=== PATIENT | male | born 1960 | race Caucasian/White ===

== ENCOUNTER 2017-08-01 05:22 | Inpatient (IN) | payer BC ==
[2017-07-26 15:26] LABS: BASOPHILS # (AUTO) 0.1 X10'3 (0-0.2); BASOPHILS % (AUTO) 0.7 % (0-1); EOSINOPHILS # (AUTO) 0.5 X10'3 (0-0.9); LYMPHOCYTES # (AUTO) 2.8 X10'3 (1.1-4.8); LYMPHOCYTES % (AUTO) 24.7 % (21-51); MEAN CORPUSCULAR HEMOGLOBIN 29.2 PG (27.0-31.0); MEAN CORPUSCULAR HGB CONC 33.5 % (33.0-36.5); MEAN CORPUSCULAR VOLUME 87.1 FL (78-98); MEAN PLATELET VOLUME 7.1 FL (7.4-10.4); MONOCYTES # (AUTO) 1.1 X10'3 (0-0.9); NEUTROPHILS # (AUTO) 6.9 X10'3 (1.8-7.7); NEUTROPHILS % (AUTO) 60.6 % (42-75); PRE OP HEMATOCRIT 39.4 % (42.0-52.0); PRE OP HEMOGLOBIN 13.2 g/dL (14.0-17.9); PRE OP PLATELET COUNT 474 X10'3 (140-440); RED BLOOD COUNT 4.53 X10'6 (4.70-6.10); RED CELL DISTRIBUTION WIDTH 14.7 % (11.5-14.5)
[2017-07-26 15:36] LABS: PRE OP INR 0.9 INR; PRE OP PROTIME 9.6 SECONDS (9.0-12.0)
[2017-07-26 15:40] LABS: ALBUMIN 3.6 G/DL (3.4-5.0); ALBUMIN/GLOBULIN RATIO 0.9 (1.1-1.5); ALKALINE PHOSPHATASE 153 IU/L (46-116); BLOOD UREA NITROGEN 27 MG/DL (7-18); CALCIUM 9.2 MG/DL (8.5-10.1); CHLORIDE 103 MMOL/L (99-107); PRE OP ALT 28 U/L (30-65); PRE OP ANION GAP 9 (8-16); PRE OP AST 20 U/L (10-37); PRE OP BILIRUB, TOTAL 0.2 MG/DL (0.0-1.0); PRE OP GLUCOSE 97 MG/DL (70-104); PRE OP POTASSIUM 4.4 MMOL/L (3.4-5.1); PRE OP SODIUM 140 MMOL/L (135-145); TOTAL CARBON DIOXIDE 28.4 MMOL/L (24-32); TOTAL PROTEIN 7.4 G/DL (6.4-8.2); eGFR 76 ML/MIN
[~2017-08-01] VITALS: Ht 167.6 cm; Wt 72.6 kg
[2017-08-01] VITALS (18 sets, daily range): BP systolic 95–138; BP diastolic 58–84
[~2017-08-01 05:22] MED LIST: NO HOME MEDS; ringers solution, lacted 1,000 ML IV SCH
[2017-08-01] MEDS ORDERED: vancomycin inj 1,500 MG in normal saline 300ml IV soln IV ONE (05:30)
[2017-08-01] MEDS ORDERED: tranexamic acid inj. 1,000 MG in normal saline 100ml IV soln 90 ML IV ONE (05:30)
[2017-08-01] MEDS ORDERED: famotidine 20mg tablet PO ONE (05:30)
[2017-08-01] MEDS ORDERED: oxyCODONE SR 10mg (sust. release) tab PO ONE (05:30)
[2017-08-01] MEDS ORDERED: clindamycin-Cleocin 900mg/D5W 50 ML IV ONE (05:30)
[2017-08-01] MEDS ORDERED: LIDOcaine 1% (10mg/ml) 2ml vial ONE (05:45)
[2017-08-01] MEDS ORDERED: sevoflurane 250ml liquid IH ONE (07:11)
[2017-08-01] MEDS ORDERED: phenylephrine 10mg/ml inj IV ONE (07:11)
[2017-08-01] MEDS ORDERED: tetracaine 1% (10mg/ml) pres. free inj. ONE (07:12)
[2017-08-01] MEDS ORDERED: cloNIDine hcl/PF 100mcg/ml inj ONE (07:12)
[2017-08-01] MEDS ORDERED: fentaNYL/PF 50MCG/1 ML 2ML syringe ONE ×2 (07:15→09:21)
[2017-08-01] MEDS ORDERED: MIDAZolam 5mg/5ml vial ONE (07:15)
[2017-08-01] MEDS ORDERED: morphine sulfate /PF 0.5 MG/ML 10mL ampul ONE (07:16)
[2017-08-01] MEDS ORDERED: LIDOcaine 2% (20mg/ml) 5ml vial ONE (07:31)
[2017-08-01] MEDS ORDERED: propofol inj 20 ML IV ONE ×3 (07:31→10:50)
[2017-08-01] MEDS ORDERED: ringers solution, lacted 1,000 ML IV SCH (08:23)
[2017-08-01] MEDS ORDERED: naloxone 2mg/2ml inj 1.4 MG in normal saline 500ml IV soln 500 ML IV PRN (08:23)
[2017-08-01] MEDS ORDERED: morphine 4 MG/ML inj SYRINge IV PRN ×2 (08:25)
[2017-08-01] MEDS ORDERED: diphenhydrAMINE 50 mg/ml inj IV PRN (08:25)
[2017-08-01] MEDS ORDERED: ondansetron/PF 4mg/2ml inj IV PRN ×3 (08:25→11:30)
[2017-08-01] MEDS ORDERED: proCHLORperazine 10 MG/2 ml inj IV PRN (08:25)
[2017-08-01] MEDS ORDERED: meperidine/PF 25mg/ml syringe IV PRN ×3 (08:25)
[2017-08-01] MEDS ORDERED: dexamethasone sod phosphate 4mg/ml inj. ONE (08:54)
[2017-08-01] MEDS ORDERED: diphenhydrAMINE 50 mg/ml inj ONE (08:54)
[2017-08-01] MEDS ORDERED: epiNEPHrine 1 mg/ml inj ONE (08:54)
[2017-08-01] MEDS ORDERED: ROPIVAcaine 0.5% (5mg/ml) 30ml vial ONE (08:54)
[2017-08-01] MEDS ORDERED: magnesium hydroxide 30ml (MOM) UD suspension PO PRN (11:30)
[2017-08-01] MEDS ORDERED: acetaminophen 325mg tablet PO PRN (11:30)
[2017-08-01] MEDS ORDERED: diphenhydrAMINE 25mg capsule PO PRN ×2 (11:30)
[2017-08-01] MEDS ORDERED: bisacodyl 10mg suppository rectal RC PRN (11:30)
[2017-08-01] MEDS ORDERED: HYDROmorphone 1 mg/ml syringe IV PRN (11:40)
[2017-08-01] MEDS ORDERED: tranexamic acid inj. 1,000 MG in normal saline 100ml IV soln 100 ML IV ONE (14:30)
[2017-08-01] MEDS: clindamycin 600mg/D5W 50ml 50 ML IV SCH ×2 (15:00→20:00)
[2017-08-01] MEDS: oxyCODONE IR 5mg (immed. release) tablet PO PRN ×3 (15:00→23:18)
[2017-08-01] MEDS ORDERED: aspirin 325mg tablet PO SCH (17:30)
[2017-08-01] MEDS: aspirin 81mg tab.chew PO SCH (17:39)
[2017-08-01] MEDS: potassium cl 20mEq in 1/2 NS 1,000 ML IV SCH (17:39)
[2017-08-01] MEDS ORDERED: vancomycin/NS 1 GM ADD-VANTAGE 250 ML IV SCH (20:00)
[2017-08-01] MEDS: sennosides 8.6mg tablet PO SCH (20:29)
[2017-08-02] MEDS: potassium cl 20mEq in 1/2 NS 1,000 ML IV SCH ×2 (00:46→09:22)
[2017-08-02 02:00] VITALS: BP 112/63
[2017-08-02] MEDS: oxyCODONE IR 5mg (immed. release) tablet PO PRN ×5 (04:55→21:09)
[2017-08-02 05:46] LABS: BASOPHILS % (AUTO) 0.4 % (0-1); EOSINOPHILS # (AUTO) 0.2 X10'3 (0-0.9); EOSINOPHILS % (AUTO) 1.6 % (0-6); HEMATOCRIT 29.3 % (42.0-52.0); HEMOGLOBIN 9.8 g/dl (14.0-17.9); LYMPHOCYTES # (AUTO) 1.9 X10'3 (1.1-4.8); LYMPHOCYTES % (AUTO) 17.7 % (21-51); MEAN CORPUSCULAR HEMOGLOBIN 28.9 PG (27.0-31.0); MEAN CORPUSCULAR HGB CONC 33.4 % (33.0-36.5); MEAN CORPUSCULAR VOLUME 86.6 FL (78-98); MEAN PLATELET VOLUME 7.4 FL (7.4-10.4); MONOCYTES # (AUTO) 1.8 X10'3 (0-0.9); MONOCYTES % (AUTO) 16.6 % (2-12); NEUTROPHILS # (AUTO) 6.9 X10'3 (1.8-7.7); NEUTROPHILS % (AUTO) 63.7 % (42-75); PLATELET COUNT 299 X10'3 (140-440); RED BLOOD COUNT 3.39 X10'6 (4.70-6.10); RED CELL DISTRIBUTION WIDTH 14.1 % (11.5-14.5); WHITE BLOOD COUNT 10.8 X10'3 (4.5-11.0)
[2017-08-02 06:47] VITALS: BP 112/68
[2017-08-02 07:09] LABS: ALANINE AMINOTRANSFERASE 21 U/L (12-78); ALBUMIN 2.5 G/DL (3.4-5.0); ALBUMIN/GLOBULIN RATIO 0.9 (1.1-1.5); ALKALINE PHOSPHATASE 104 IU/L (46-116); ANION GAP 8 (8-16); ASPARTATE AMINO TRANSFERASE 15 U/L (10-37); BILIRUBIN,TOTAL 0.7 MG/DL (0.1-1.0); BLOOD UREA NITROGEN 21 MG/DL (7-18); BUN/CREATININE RATIO 20.2 (5.4-32.0); CHLORIDE 104 MMOL/L (99-107); CREATININE 1.04 MG/DL (0.60-1.10); GLUCOSE 107 MG/DL (70-104); POTASSIUM 4.1 MMOL/L (3.5-5.1); SODIUM 137 MMOL/L (135-145); TOTAL CARBON DIOXIDE 25.5 MMOL/L (24-32); TOTAL PROTEIN 5.4 G/DL (6.4-8.2); eGFR 73 ML/MIN
[2017-08-02] MEDS: aspirin 81mg tab.chew PO SCH ×2 (07:12→17:17)
[2017-08-02 10:36] VITALS: BP 114/76
[2017-08-02 14:00] VITALS: BP 126/77
[2017-08-02 18:30] VITALS: BP 138/82
[2017-08-02] MEDS: sennosides 8.6mg tablet PO SCH (21:10)
[2017-08-03] MEDS: oxyCODONE IR 5mg (immed. release) tablet PO PRN ×4 (01:06→20:06)
[2017-08-03] MEDS: potassium cl 20mEq in 1/2 NS 1,000 ML IV SCH (01:07)
[2017-08-03 05:57] LABS: BASOPHILS # (AUTO) 0.1 X10'3 (0-0.2); BASOPHILS % (AUTO) 0.5 % (0-1); EOSINOPHILS # (AUTO) 0.3 X10'3 (0-0.9); EOSINOPHILS % (AUTO) 2.5 % (0-6); HEMATOCRIT 26.8 % (42.0-52.0); HEMOGLOBIN 9.2 g/dl (14.0-17.9); LYMPHOCYTES # (AUTO) 1.2 X10'3 (1.1-4.8); LYMPHOCYTES % (AUTO) 9.6 % (21-51); MEAN CORPUSCULAR HEMOGLOBIN 29.5 PG (27.0-31.0); MEAN CORPUSCULAR HGB CONC 34.2 % (33.0-36.5); MEAN CORPUSCULAR VOLUME 86.3 FL (78-98); MEAN PLATELET VOLUME 7.2 FL (7.4-10.4); MONOCYTES # (AUTO) 2.1 X10'3 (0-0.9); MONOCYTES % (AUTO) 16.4 % (2-12); NEUTROPHILS # (AUTO) 9.1 X10'3 (1.8-7.7); PLATELET COUNT 281 X10'3 (140-440); RED BLOOD COUNT 3.11 X10'6 (4.70-6.10); RED CELL DISTRIBUTION WIDTH 13.8 % (11.5-14.5); WHITE BLOOD COUNT 12.8 X10'3 (4.5-11.0)
[2017-08-03 06:00] VITALS: BP 113/74
[2017-08-03 06:27] LABS: ALANINE AMINOTRANSFERASE 16 U/L (12-78); ALBUMIN 2.3 G/DL (3.4-5.0); ALBUMIN/GLOBULIN RATIO 0.7 (1.1-1.5); ALKALINE PHOSPHATASE 99 IU/L (46-116); ANION GAP 9 (8-16); ASPARTATE AMINO TRANSFERASE 16 U/L (10-37); BILIRUBIN,TOTAL 0.6 MG/DL (0.1-1.0); BLOOD UREA NITROGEN 14 MG/DL (7-18); BUN/CREATININE RATIO 13.7 (5.4-32.0); CALCIUM 8.2 MG/DL (8.5-10.1); CHLORIDE 99 MMOL/L (99-107); CREATININE 1.02 MG/DL (0.60-1.10); GLUCOSE 101 MG/DL (70-104); POTASSIUM 4.1 MMOL/L (3.5-5.1); SODIUM 135 MMOL/L (135-145); TOTAL CARBON DIOXIDE 26.7 MMOL/L (24-32); TOTAL PROTEIN 5.7 G/DL (6.4-8.2); eGFR 75 ML/MIN
[2017-08-03 06:36] LABS: NEUTROPHILS % (MANUAL) 80 % (42-75); TOTAL CELLS COUNTED 100
[2017-08-03 06:37] LABS: LYMPHOCYTES % (MANUAL) 8 % (21-51); MONOCYTES % (MANUAL) 12 % (2-12); PLATELET ESTIMATE NORMAL
[2017-08-03] MEDS: aspirin 81mg tab.chew PO SCH ×2 (08:44→18:00)
[2017-08-03] MEDS: tamsulosin 0.4mg capsule PO SCH ×2 (08:44→20:06)
[2017-08-03 11:00] VITALS: BP 96/58
[2017-08-03 18:00] VITALS: BP 104/63
[2017-08-03] MEDS: sennosides 8.6mg tablet PO SCH (20:06)
[2017-08-03 22:00] VITALS: BP 82/42
[2017-08-04 00:45] VITALS: BP 89/49
[2017-08-04] MEDS: oxyCODONE IR 5mg (immed. release) tablet PO PRN ×4 (00:47→20:21)
[2017-08-04 02:00] VITALS: BP 83/50
[2017-08-04 06:32] LABS: BASOPHILS % (AUTO) 0.4 % (0-1); EOSINOPHILS # (AUTO) 0.4 X10'3 (0-0.9); EOSINOPHILS % (AUTO) 3.5 % (0-6); HEMATOCRIT 25.2 % (42.0-52.0); HEMOGLOBIN 8.5 g/dl (14.0-17.9); LYMPHOCYTES # (AUTO) 1.3 X10'3 (1.1-4.8); LYMPHOCYTES % (AUTO) 12.8 % (21-51); MEAN CORPUSCULAR HEMOGLOBIN 29.2 PG (27.0-31.0); MEAN CORPUSCULAR HGB CONC 33.6 % (33.0-36.5); MEAN CORPUSCULAR VOLUME 86.7 FL (78-98); MEAN PLATELET VOLUME 7.2 FL (7.4-10.4); MONOCYTES # (AUTO) 1.6 X10'3 (0-0.9); MONOCYTES % (AUTO) 15.3 % (2-12); NEUTROPHILS # (AUTO) 7.2 X10'3 (1.8-7.7); PLATELET COUNT 272 X10'3 (140-440); RED BLOOD COUNT 2.91 X10'6 (4.70-6.10); RED CELL DISTRIBUTION WIDTH 13.9 % (11.5-14.5); WHITE BLOOD COUNT 10.5 X10'3 (4.5-11.0)
[2017-08-04 06:53] LABS: ALANINE AMINOTRANSFERASE 15 U/L (12-78); ALBUMIN 2.2 G/DL (3.4-5.0); ALBUMIN/GLOBULIN RATIO 0.6 (1.1-1.5); ALKALINE PHOSPHATASE 93 IU/L (46-116); ANION GAP 8 (8-16); ASPARTATE AMINO TRANSFERASE 17 U/L (10-37); BILIRUBIN,TOTAL 0.4 MG/DL (0.1-1.0); BLOOD UREA NITROGEN 19 MG/DL (7-18); BUN/CREATININE RATIO 18.8 (5.4-32.0); CALCIUM 8.6 MG/DL (8.5-10.1); CHLORIDE 101 MMOL/L (99-107); CREATININE 1.01 MG/DL (0.60-1.10); GLUCOSE 130 MG/DL (70-104); POTASSIUM 3.9 MMOL/L (3.5-5.1); SODIUM 137 MMOL/L (135-145); TOTAL CARBON DIOXIDE 28.4 MMOL/L (24-32); TOTAL PROTEIN 5.8 G/DL (6.4-8.2); eGFR 76 ML/MIN
[2017-08-04 07:00] VITALS: BP 94/60
[2017-08-04] MEDS: tamsulosin 0.4mg capsule PO SCH (08:00)
[2017-08-04] MEDS: aspirin 81mg tab.chew PO SCH ×2 (08:11→17:23)
[2017-08-04 10:21] VITALS: BP 96/50
[2017-08-04] MEDS ORDERED: normal saline 1000ml 1,000 ML IV SCH (10:55)
[2017-08-04] MEDS ORDERED: normal saline 500ml IV soln 500 ML IV ONE (11:10)
[2017-08-04 18:00] VITALS: BP 107/67
[2017-08-04] MEDS: sennosides 8.6mg tablet PO SCH (20:21)
[2017-08-04 22:00] VITALS: BP 106/59
[2017-08-05 01:12] VITALS: BP 99/66
[2017-08-05] MEDS: oxyCODONE IR 5mg (immed. release) tablet PO PRN ×2 (04:36→09:03)
[2017-08-05] MEDS ORDERED: OXYC-150 PO (05:08)
[2017-08-05] MEDS ORDERED: ASPI-1265 PO (05:08)
[2017-08-05 06:00] VITALS: BP 107/69
[2017-08-05] MEDS: aspirin 81mg tab.chew PO SCH (07:52)
== END 2017-08-05 09:30 | disposition home or self-care (01) | DRG 470 ==
LOC: PRE-OP 05:22 → PAS IN 05:28 → EDSTATUS 07:30 → ORTHO 4S 12:25
PROVIDERS: ADMIT Orthopaedic Surgery; ATTEND Orthopaedic Surgery
PROC: 3E0T3BZ Introduction of Anesthetic Agent into Peripheral Nerves and Plexi, Percutaneous Approach (ICD-10-PCS; 2017-08-01)
PROC: 0SRC0J9 Replacement of Right Knee Joint with Synthetic Substitute, Cemented, Open Approach (ICD-10-PCS; principal; 2017-08-01 07:11)
DX: M17.11 Unilateral primary osteoarthritis, right knee (principal); D62 Acute posthemorrhagic anemia; R33.9 Retention of urine, unspecified; Z88.0 Allergy status to penicillin
CPT/HCPCS: 36415; 71046; 80053; 85025; 85610; 85730; 86885; 86900; 86901; 86920; 87070; 93005; 97110; 97116; 97162; 97530; A4315; A4353; A6449; A6454; A7000; C1713; C1758; C1776; J0171; J0735; J1100; J1200; J2001; J2250; J2274; J2310; J2370; J2704; J2795; J3010; J3370; J3490; J7030; J7120